=== PATIENT | male | born 1985 | race Two or more races ===

== ENCOUNTER 2024-05-27 21:50 | Inpatient (IN) | payer OTHER ==
[2024-05-27 22:13] VITALS: BMI 28.2
[2024-05-27] MEDS ORDERED: LOPERAMIDE HCL 2 MG CAPSULE PO PRN (22:26)
[2024-05-27] MEDS ORDERED: MAG HYDROX/AL HYDROX/SIMETH 30 ML UNIT-DOSE CUP PO PRN (22:26)
[2024-05-27] MEDS ORDERED: DICYCLOMINE HCL 10 MG CAPSULE PO PRN (22:26)
[2024-05-27] MEDS ORDERED: MAGNESIUM HYDROX 2400MG/30ML ORAL SUSPENSION 30 ML CUP PO PRN (22:26)
[2024-05-27] MEDS ORDERED: ACETAMINOPHEN 325 MG TABLET (FP) PO PRN (22:26)
[2024-05-27] MEDS ORDERED: IBUPROFEN 400 MG TABLET (FP) PO PRN (22:26)
[2024-05-27] MEDS ORDERED: ONDANSETRON *ODT* 4 MG TABLET SL PRN (22:26)
[2024-05-27] MEDS ORDERED: guaiFENesin 600 MG TABLET.ER (FP) PO PRN (22:26)
[2024-05-27] MEDS ORDERED: METHOCARBAMOL 500 MG TABLET PO PRN (22:26)
[2024-05-27] MEDS ORDERED: IBUPROFEN 600 MG TABLET (FP) PO PRN (22:26)
[2024-05-27] MEDS ORDERED: BENZONATATE 200 MG CAPSULE PO PRN (22:26)
[2024-05-27] MEDS ORDERED: POLYETHYLENE GLYCOL (HEALTHYLAX) 3350 17 GM PACKET PO PRN (22:26)
[2024-05-27] MEDS ORDERED: BENZOCAINE/MENTHOL (CHLORASEPTIC ) LOZENGE MM PRN (22:26)
[2024-05-27] MEDS ORDERED: BISMUTH SUBSALICYLATE 524 MG/30 ML PO PRN (22:26)
[2024-05-27] MEDS ORDERED: LORazepam 2 MG/ML SDV VIAL ONE (22:32)
[2024-05-27] MEDS ORDERED: levETIRAcetam 500 MG TABLET (FP) PO ONE (22:32)
[2024-05-27] MEDS ORDERED: chlordiazePOXIDE HCL 25 MG CAPSULE ONE (22:32)
[2024-05-27] MEDS: LORazepam 2 MG/ML SDV VIAL IM ONE (22:51)
[2024-05-27] MEDS: chlordiazePOXIDE HCL 25 MG CAPSULE PO SCH (22:52)
[2024-05-27] MEDS: levETIRAcetam 500 MG TABLET (FP) PO ONE (22:52)
[2024-05-28] MEDS ORDERED: chlordiazePOXIDE HCL 25 MG CAPSULE ONE ×2 (05:27→10:34)
[2024-05-28 09:55] LABS: HEMATOCRIT 38.5 % (35.4-49); HEMOGLOBIN 13.2 GM/dL (11.7-16.9); MCH 33.2 pg (25.7-33.7); MCHC 34.2 g/dl (32.0-35.9); MEAN CELL VOLUME 96.8 fl (80-96); MEAN PLT VOLUME 7.4 fl (7.5-11.1); PLATELET COUNT 112 10^3/uL (134-434); RBC 3.97 M/mm3 (4.00-5.60); RDW 13.2 % (11.9-15.9); WHITE BLOOD COUNT 2.5 K/mm3 (4.0-10.0)
[2024-05-28 10:19] LABS: POTASSIUM 3.9 mmol/L (3.5-5.1)
[2024-05-28 10:26] LABS: ALBUMIN 3.4 g/dl (3.4-5.0); BLOOD UREA NITROGEN 7.2 mg/dL (7-18); CALCIUM 9.1 mg/dL (8.5-10.1)
[2024-05-28 10:28] LABS: CREATININE 0.8 mg/dL (0.55-1.3)
[2024-05-28 10:29] LABS: BILIRUBIN,TOTAL 0.8 mg/dL (0.2-1)
[2024-05-28 10:30] LABS: TOT PROT 6.3 g/dl (6.4-8.2)
[2024-05-28] MEDS ORDERED: levETIRAcetam 500 MG TABLET (FP) PO ONE (10:34)
[2024-05-28] MEDS ORDERED: PRENATAL VITAMINS W/ FOLIC ACID TABLET (FP) PO ONE (10:34)
[2024-05-28] MEDS: PRENATAL VITAMINS W/ FOLIC ACID TABLET (FP) PO SCH (10:35)
[2024-05-28] MEDS: levETIRAcetam 500 MG TABLET (FP) PO SCH (10:36)
[2024-05-28] MEDS: FOLIC ACID 1 MG TABLET (FP) PO SCH (11:01)
[2024-05-28] MEDS: chlordiazePOXIDE HCL 25 MG CAPSULE PO PRN (13:05)
[2024-05-28] MEDS ORDERED: LORazepam 1 MG TABLET PO PRN (14:43)
[2024-05-28] MEDS: LORazepam 2 MG TABLET PO SCH (17:14)
[2024-05-28] MEDS: THIAMINE 100 MG TABLET PO SCH (22:24)
[2024-05-28] MEDS: MELATONIN 5 MG TABLETS PO SCH (22:25)
[2024-05-29] MEDS ORDERED: chlordiazePOXIDE HCL 25 MG CAPSULE PO SCH (05:00)
[2024-05-29] MEDS: hydrOXYzine PAMOATE 25 MG CAPSULE (FP) PO PRN (10:22)
[2024-05-29 16:43] VITALS: RESP 16
[2024-05-30] MEDS ORDERED: chlordiazePOXIDE HCL 10 MG CAPSULE PO PRN
[2024-05-30] MEDS ORDERED: chlordiazePOXIDE HCL 10 MG CAPSULE PO SCH (05:00)
[2024-05-30] MEDS: LORazepam 1 MG TABLET PO SCH (05:24)
[2024-05-30 10:06] VITALS: BP 125/81; PULSE 77; TEMP 97.7
[2024-05-30] MEDS: NALOXONE (NYS OPIOID OVERDOSE PROGRAM) 4 MG/0.1 ML SPRAY NS SCH (11:02)
[2024-05-30 14:02] LABS: POTASSIUM 4.1 mmol/L (3.5-5.1)
[2024-05-30 14:07] LABS: CALCIUM 9.7 mg/dL (8.5-10.1)
[2024-05-30 14:08] LABS: ALBUMIN 3.6 g/dl (3.4-5.0); BLOOD UREA NITROGEN 8.2 mg/dL (7-18)
[2024-05-30 14:10] LABS: BILIRUBIN,TOTAL 0.6 mg/dL (0.2-1)
[2024-05-30 14:11] LABS: CREATININE 0.9 mg/dL (0.55-1.3); TOT PROT 6.6 g/dl (6.4-8.2)
[2024-05-31] MEDS ORDERED: LORazepam 0.5 MG TABLET PO PRN
[2024-05-31] MEDS ORDERED: chlordiazePOXIDE HCL 10 MG CAPSULE PO SCH (05:00)
[2024-05-31] MEDS ORDERED: LORazepam 0.5 MG TABLET PO SCH (05:00)
[2024-06-01] MEDS ORDERED: chlordiazePOXIDE HCL 10 MG CAPSULE PO ONE (05:00)
[2024-06-01] MEDS ORDERED: LORazepam 0.5 MG TABLET PO ONE (05:00)
== END 2024-05-30 10:45 | disposition home or self-care (01) | DRG 775 ==
LOC: YASAS 21:50 → Y6N 05-28 11:32
PROVIDERS: ADMIT Allergy & Immunology; ATTEND Surgery
PROC: HZ2ZZZZ Detoxification Services for Substance Abuse Treatment (ICD-10-PCS; principal; 2024-05-28)
DX: F10.230 Alcohol dependence with withdrawal, uncomplicated (principal); F10.282 Alcohol dependence with alcohol-induced sleep disorder; F10.280 Alcohol dependence with alcohol-induced anxiety disorder; D69.6 Thrombocytopenia, unspecified; R94.5 Abnormal results of liver function studies; G40.909 Epilepsy, unspecified, not intractable, without status epilepticus
CPT/HCPCS: 36415; 80053; 85027; 86780; 93005; 93010